=== PATIENT | female | born 1960 | race Caucasian/White ===

== ENCOUNTER 2022-12-28 17:09 | Emergency (ER) | payer MEDICARE, OTHER ==
[~2022-12-28] VITALS: Ht 175 cm; Wt 83.9 kg
[~2022-12-28 17:09] MED LIST: ALBU2.5V52 INH; ALEN70TA47 PO; AMIT10TA6 PO; AMIT50TA3 PO; AMITRIPTYLINE; AMX500CIP PO; ASP81CT PO; Azithromycin PO; CA C1TAB53 PO; CA C1TAB80 PO; CELEXA; CITA-105 PO; CYCL10TA9 PO; DCS100C PO; DEXT1DRO8 OP; DOCU-161 PO; FENO135C; FENO135C PO; FLEXERIL; GABA-490 PO; GABA800T2 PO; HYDR-2890; HYDR-2890 PO; HYDR1TAB PO; NEURONTIN; OMEP-10 PO; OMEP20CA12 PO; ONDA-42 SL; OXYC-12 PO; PANT20TA PO; PHEN177S38 MM; PRILOSEC; RANI150C11 PO; RANI300T4 PO; RANITIDINE; SENN1TAB76 PO; SIMV40TA2 PO; SUCR1TAB PO; TIZA2TAB3 PO; TIZA4CAP6 PO; TRAM1TAB7 PO; TRAM50TA2 PO
[2022-12-28 17:26] LABS: BASOPHILS # (AUTO) 0.1 10^3/uL (0.0-0.1); BASOPHILS % (AUTO) 1 % (0-10); EOSINOPHILS # (AUTO) 0.5 10^3/uL (0.0-0.3); EOSINOPHILS % (AUTO) 4 % (0-10); HEMATOCRIT 40 % (35-52); HEMOGLOBIN 12.7 g/dL (11.5-16.0); LYMPHOCYTES # (AUTO) 1.5 10^3/uL (1.0-4.0); LYMPHOCYTES % (AUTO) 13 % (12-44); MEAN CORPUSCULAR HEMOGLOBIN 30 pg (25-34); MEAN CORPUSCULAR HGB CONC 32 g/dL (32-36); MEAN CORPUSCULAR VOLUME 93 fL (80-99); MEAN PLATELET VOLUME 9.8 fL (9.0-12.2); MONOCYTES # (AUTO) 0.9 10^3/uL (0.0-1.0); MONOCYTES % (AUTO) 7 % (0-12); NEUTROPHILS % (AUTO) 75 % (42-75); PLATELET COUNT 424 10^3/uL (130-400)
--- NOTE | 2022-12-28 17:28 | ED Chest Pain ---
General Chief Complaint: Chest Pain Stated Complaint: CHEST PAIN Nursing Triage Note: PT PRESENTS TO ED VIA POV FROM HOME WITH COMPLAINTS OF UNABLE TO SWALLOW FOOD OR LIQUIDS SINCE YETERDAY. PT REPORTS CENTRAL CP STARTING APROX 4 HOURS AGO. REPORTS IT RADIATES UP THE FRONT OF HER NECK AND THROUGH HER BACK Source: patient, old records Exam Limitations: no limitations (PRITI ENRIQUE MD) History of Present Illness Date Seen by Provider: Dec 28, 2022 Time Seen by Provider: 17:16 Initial Comments This 62-year-old woman presents to the emergency room with complaints of chest pain and inability to swallow food and fluid since yesterday afternoon. She has a history of multiple esophageal strictures requiring dilatation several times. She had an episode here in [place] in 2014 in which she had dilatation for 3 separate strictures and developed an esophageal perforation. She was transferred to [place]. She subsequently had a dilatation performed by Dr. Escamilla in 2018 in [place] where she lives. She is in town visiting a friend presently. She was supposed to have follow-ups with GI and serial dilatations but her in 2018. After her 's , she developed apathy regarding her health and esophageal problems. (PRITI ENRIQUE MD) Allergies and Home Medications Allergies Coded Allergies: Sulfa (Sulfonamide Antibiotics) (Verified Allergy, Mild, 10/29/11) nitrofurantoin (Verified Allergy, Mild, 10/29/11) Quinolones (Unverified Allergy, Unknown, 10/29/11) Patient Home Medication List Home Medication List Reviewed: Yes (PRITI ENRIQUE MD) Amitriptyline Hcl (Amitriptyline Hcl) 50 Mg Tablet, 50 MG PO HS, (Reported) Entered as Reported by: BEBE CARDOZA on 07/23/11 1427 Ca Carbonate/Vitamin D3/Vit K (Viactiv Soft Chew Tablet) 1 Each Tab.chew, 1 TAB.CHEW PO BID, (Reported) Entered as Reported by: MATILDA LIU on 06/14/13 1817 Citalopram Hydrobromide (Citalopram Hbr) 40 Mg Tablet, 40 MG PO HS, (Reported) Entered as Reported by: CHRISTOPHER LOZANO on 10/26/10 0157 Cyclobenzaprine Hcl (Cyclobenzaprine Hcl) 10 Mg Tablet, 1 EACH PO TID, (Repo rted) Entered as Reported by: ZAHRAA LÓPEZ on 06/28/14 1156 Gabapentin (Gabapentin) 400 Mg Capsule, 800 MG PO BID, (Reported) Entered as Reported by: DMITRI GARZA on 06/21/14 1603 Omeprazole (Omeprazole) 20 Mg Capsule.dr, 20 MG PO HS, (Reported) Entered as Reported by: MATILDA LIU on 06/14/13 181 Ranitidine Hcl (Ranitidine Hcl) 150 Mg Capsule, 150 MG PO DAILY, (Reported) Entered as Reported by: MATILDA LIU on 06/14/131816 Tramadol Hcl/Acetaminophen (Tramadol-Apap 37.5-325 Mg Tab) 1 Each Tablet, 1 TAB PO BID, (Reported) Entered as Reported by: MATILDA LIU on 06/14/131816 Review of Systems Review of Systems Constitutional: no symptoms reported EENTM: No Symptoms Reported Respiratory: No Symptoms Reported Cardiovascular: See HPI Gastrointestinal: See HPI Genitourinary: No Symptoms Reported Musculoskeletal: no symptoms reported Skin: no symptoms reported Psychiatric/Neurological: No Symptoms Reported Endocrine: No Symptoms Reported Hematologic/Lymphatic: No Symptoms Reported (PRITI ENRIQUE MD) Past Urmacir-Fvinux-Anlcvb Hx Patient Social History Tobacco Use?: No Substance use?: No Alcohol Use?: No Pt feels they are or have been: No (PRITI ENRIQUE MD) Immunizations Up To Date Tetanus Booster (TDap): More than 5yrs (PRITI ENRIQUE MD) Past Medical History Surgery/Hospitalization HX: HX ESOPHAGUS ISSUES- HAD TO BE STRATCHED MULTIPLE TIMES. Surgeries: Yes Abdominal (Multiple esophageal dilatations), Hysterectomy Respiratory: No Cardiac: No Neurological: No : No Reproductive Disorders: No Sexually Transmitted Disease: No Gastrointestinal: Yes (Multiple esophageal strictures) Gastroesophageal Reflux, Chronic Constipation, Irritable Bowel Osteoporosis, Arthritis, Fibromyalgia Endocrine: No HEENT: No Cancer: No Psychosocial: Yes Anxiety, Depression Adverse Reaction/Blood Tranf: No (PRITI ENRIQUE MD) Family Medical History Alcoholism 03 FATHER Cancer 03 FATHER Cataract 03 FATHER 03 MOTHER Chest pain 03 MOTHER Congestive heart failure 03 MOTHER Family history: Allergy DAUGHTER Family history: Arthritis 03 MOTHER Family history: Asthma DAUGHTER Family history: Cardiovascular disease 03 FATHER Family history: Osteoporosis 03 MOTHER Heart disease 03 MOTHER History of - respiratory disease DAUGHTER Hypercholesterolemia 03 FATHER Seizure disorder 03 FATHER Stroke 03 FATHER No Family History of: Abdominal aortic aneurysm Daniel's disease Aphasia Cancer of colon Congenital heart disease Cystic fibrosis Dementia Dysphagia Family history: Alzheimer's disease Family history: Breast disease Family history: Coronary thrombosis Family history: Diabetes mellitus Family history: Gastrointestinal disease Family history: Glaucoma Family history: Hypertension Family history: Thyroid disorder Headache Hearing loss Hereditary disease History of - anemia History of - disorder History of drug abuse Human immunodeficiency virus (HIV) seropositivity Infertile Kidney disease Malignant neoplasm of lung Myocardial infarction Parkinson's disease Prostate cancer Psychotic disorder Tuberculosis Visual impairment Physical Exam Vital Signs Vital Signs - First Documented 12/28/22 17:16 Temp 36.8 Pulse 102 Resp 16 B/P (MAP) 132/80 (97) Pulse Ox 94 (GIMENEZ,DHARMESH L DO) Vital Signs Capillary Refill : Less Than 3 Seconds (PRITI ENRIQUE MD) Height, Weight, BMI Height: 5'10.00" Weight: 215lbs. 6.0oz. 97.815725mx; 27.00 BMI Method:Stated General Appearance: WD/WN, Mild Distress HEENT: PERRL/EOMI, Normal ENT Inspection, Pharynx Normal Neck: Normal Inspection Respiratory: Lungs Clear, Normal Breath Sounds, No Accessory Muscle Use Cardiovascular: Regular Rate, Rhythm, No Edema, No Murmur Gastrointestinal: Soft; No Distended; Tenderness (Epigastrium) Extremity: Normal Inspection, No Pedal Edema Neurologic/Psychiatric: Alert, Oriented x3, No Motor/Sensory Deficits, Other (Mildly anxious) Skin: Normal Color, Warm/Dry (PRITI ENRIQUE MD) Progress/Results/Core Measures Results/Orders Lab Results Laboratory Tests Test 12/28/22 17:18 Range/Units White Blood Count 12.0 H 4.3-11.0 10^3/uL Red Blood Count 4.27 3.80-5.11 10^6/uL Hemoglobin 12.7 11.5-16.0 g/dL Hematocrit 40 35-52 % Mean Corpuscular Volume 93 80-99 fL Mean Corpuscular Hemoglobin 30 25-34 pg Mean Corpuscular Hemoglobin Concent 32 32-36 g/dL Red Cell Distribution Width 13.8 10.0-14.5 % Platelet Count 424 H 130-400 10^3/uL Mean Platelet Volume 9.8 9.0-12.2 fL Immature Granulocyte % (Auto) 0 % Neutrophils (%) (Auto) 75 42-75 % Lymphocytes (%) (Auto) 13 12-44 % Monocytes (%) (Auto) 7 0-12 % Eosinophils (%) (Auto) 4 0-10 % Basophils (%) (Auto) 1 0-10 % Neutrophils # (Auto) 9.0 H 1.8-7.8 10^3/uL Lymphocytes # (Auto) 1.5 1.0-4.0 10^3/uL Monocytes # (Auto) 0.9 0.0-1.0 10^3/uL Eosinophils # (Auto) 0.5 H 0.0-0.3 10^3/uL Basophils # (Auto) 0.1 0.0-0.1 10^3/uL Immature Granulocyte # (Auto) 0.1 0.0-0.1 10^3/uL Prothrombin Time 13.3 12.2-14.7 SEC INR Comment 1.0 0.8-1.4 Activated Partial Thromboplast Time 31 24-35 SEC Sodium Level 137 135-145 MMOL/L Potassium Level 4.1 3.6-5.0 MMOL/L Chloride Level 103 98-107 MMOL/L Carbon Dioxide Level 26 21-32 MMOL/L Anion Gap 8 5-14 MMOL/L Blood Urea Nitrogen 19 H 7-18 MG/DL Creatinine 1.01 0.60-1.30 MG/DL Estimat Glomerular Filtration Rate 63 BUN/Creatinine Ratio 19 Glucose Level 108 H 70-105 MG/DL Calcium Level 10.1 8.5-10.1 MG/DL Corrected Calcium 10.0 8.5-10.1 MG/DL Magnesium Level 1.8 1.6-2.4 MG/DL Total Bilirubin 0.8 0.1-1.0 MG/DL Aspartate Amino Transf (AST/SGOT) 20 5-34 U/L Alanine Aminotransferase (ALT/SGPT) 18 0-55 U/L Alkaline Phosphatase 95 40-136 U/L Myoglobin 24.8 10.0-92.0 NG/ML Troponin I < 0.028 <0.028 NG/ML Total Protein 7.2 6.4-8.2 GM/DL Albumin 4.1 3.2-4.5 GM/DL Lipase 22 8-78 U/L (GIMENEZ,DHARMESH L DO) Medications Given in ED Current Medications Medications Dose Ordered Sig/Macario Route Start Time Stop Time Status Last Admin Dose Admin Fentanyl Citrate 50 mcg ONCE ONCE IVP 12/28/22 17:30 12/28/22 17:31 DC 12/28/22 17:35 50 MCG Glucagon 1 mg ONCE ONCE IM 12/28/22 17:30 12/28/22 17:31 DC 12/28/22 17:39 1 MG Ondansetron HCl 8 mg ONCE ONCE IVP 12/28/22 17:30 12/28/22 17:31 DC 12/28/22 17:35 8 MG Pantoprazole 40 mg ONCE ONCE IV 12/28/22 17:30 12/28/22 17:31 DC 12/28/22 17:34 40 MG (GIMENEZ,DHARMESH L DO) Vital Signs/I&O 12/28/22 17:16 Temp 36.8 Pulse 102 Resp 16 B/P (MAP) 132/80 (97) Pulse Ox 94 (GIMENEZ,DHARMESH L DO) 2 Blood Pressure Mean: 97 Progress Progress Note : Time: 18:45 Progress Note Patient was interviewed and examined shortly after arrival. Cardiopulmonary work-up was pursued. Patient had a normal troponin and EKG. She was treated with fentanyl, Zofran, and Protonix with some improvement. Glucagon was also administered. I have observed the patient personally drink approximately 3 ounces of water without any type of regurgitation or vomiting. On the second attempt patient states she did feel little bit better. I discussed the situation at length and reviewed the prior endoscopy report with Dr. Kennedy, surgeon on-call, who is also the surgeon who performed endoscopy at the time of perforation. Dr. Kennedy's opinion is that patient should be evaluated at a higher level of care due to her risk of complications during endoscopy and dilatation. She is at high risk for perforating again. We do not have gastroenterology or cardiothoracic surgery support at this facility. He advised offering the options of transfer versus admission for observation followed by esophagram in the morning. 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 She offers to drive herself. I would like a better understanding of whether she is truly obstructed or just has slow flow. Care of the patient is being transitioned to Dr. Gimenez at this time who will reassess her soon and discuss options further. CBC, CMP, lipase, and troponin were grossly unremarkable. There was slight elevation in WBC of 12. (PRITI ENRIQUE MD) Progress Note : Progress Note 192 care was assumed at shift change. Patient was able to tolerate multiple times without any difficulty. We did discuss options versus to facilitate transfer, observation with him in the morning or she could be discharged on diet and follow-up with her GI specialist back home in [place]. Patient and has a GI specialist in [place]. She reports that she was post to have an esophageal dilatation back in 2018 but has not. Patient will be discharged per our discussion. She will return to the ER with any concerns otherwise she will follow with her GI specialist. She will call them first thing in the morning to set up an appointment time. (DHARMESH GIMENEZ DO) Initial ECG Impression Date: Dec 28, 2022 Initial ECG Impression Time: 17:19 Initial ECG Rate: 99 Initial ECG Rhythm: Normal Sinus Initial ECG Intervals: Normal Initial ECG Impression: Normal Comment Normal sinus rhythm with no ST elevation or depression. No abnormal intervals or axis deviation. (PRITI ENRIQUE MD) Diagnostic Imaging Diagonstic Imaging: Xray Plain Films/CT/US/NM/MRI: chest Comments NAME: JOELLE ALMARAZ [facility] REC#: [id number] PT STATUS: REG ER : 1960 PHYSICIAN: PRITI ENRIQUE MD ADMIT DATE: 12/28/22/ER Draft Date of Exam:12/28/22 CHEST 1 VIEW, AP/PA ONLY INDICATION: Chest pain. COMPARISON: Exam compared to 04/04/2019. FINDINGS: Lungs are clear. No failure, effusion, or pneumothorax. There is an old healed left fourth rib deformity, chronic. Hilar and mediastinal contours are normal. IMPRESSION: No acute-appearing abnormality. Dictated on workstation # [id number] Dict: 12/28/22 1732 Trans: 12/28/22 1739 [id number] Interpreted by: KARIME LIVE (PRITI ENRIQUE MD) Departure Impression Primary Impression: Esophageal stricture Additional Impression: Chest pain Qualified Codes: R07.9 - Chest pain, unspecified Disposition: 01 HOME, SELF-CARE Condition: Stable Departure-Patient Inst. Referrals: NO,LOCAL PHYSICIAN (PCP/Family) Primary Care Physician Patient Instructions: Esophageal Dilation, Esophageal Stricture (DC), Chest Pain That Is Not Caused by the Heart (DC) Add. Discharge Instructions: Liquid diet until cleared by your GI specialist, please call your GI specialist in the morning to arrange for further outpatient treatment. Return to the ER or proceed to the nearest emergency room with any concerns All discharge instructions reviewed with patient and/or family. Voiced understanding. PRITI ENRIQUE MD Dec 28, 2022 17:28 DHARMESH GIMENEZ DO Dec 28, 2022 19:21
[2022-12-28] MEDS ORDERED: ONDANSETRON 4 MG/2 ML (SDV) Z0FRAN IVP ONE (17:30)
[2022-12-28] MEDS ORDERED: fentaNYL INJ 100 MCG/2 ML AMP IVP ONE (17:30)
[2022-12-28] MEDS ORDERED: GLUCAGON EMERGENCY 1 MG/KIT IM ONE (17:30)
[2022-12-28] MEDS ORDERED: PANTOPRAZOLE 40 MG (PROTONIX) VIAL IV ONE (17:30)
[2022-12-28 17:39] LABS: ALBUMIN 4.1 GM/DL (3.2-4.5); CHLORIDE 103 MMOL/L (98-107); POTASSIUM 4.1 MMOL/L (3.6-5.0); SODIUM 137 MMOL/L (135-145)
--- NOTE | 2022-12-28 17:39 | Diagnostic Imaging Report ---
INDICATION: Chest pain. COMPARISON: Exam compared to 04/04/2019. FINDINGS: Lungs are clear. No failure, effusion, or pneumothorax. There is an old healed left fourth rib deformity, chronic. Hilar and mediastinal contours are normal. IMPRESSION: No acute-appearing abnormality. Dictated by: Dictated on workstation # [id number]
[2022-12-28 17:40] LABS: CALCIUM 10.1 MG/DL (8.5-10.1); PROTHROMBIN TIME PATIENT 13.3 SEC (12.2-14.7)
[2022-12-28 17:41] LABS: GLUCOSE 108 MG/DL (70-105)
[2022-12-28 17:42] LABS: TOTAL PROTEIN 7.2 GM/DL (6.4-8.2)
[2022-12-28 17:43] LABS: BILIRUBIN,TOTAL 0.8 MG/DL (0.1-1.0); CARBON DIOXIDE 26 MMOL/L (21-32)
[2022-12-28 17:45] LABS: ALKALINE PHOSPHATASE 95 U/L (40-136); CREATININE SERUM 1.01 MG/DL (0.60-1.30); GFR ESTIMATED 63
[2022-12-28 17:46] LABS: BUN/CREATININE RATIO 19
[2022-12-28 17:48] LABS: ALANINE AMINOTRANSFERASE 18 U/L (0-55); MAGNESIUM 1.8 MG/DL (1.6-2.4)
[2022-12-28 19:39] VITALS: BP 127/88
== END 2022-12-28 19:41 | disposition home or self-care (01) ==
LOC: EDUNIT# 17:09 → ER 17:11
DX: K22.2 Esophageal obstruction (principal); R07.9 Chest pain, unspecified; Z98.890 Other specified postprocedural states
CPT/HCPCS: 36415; 71045; 80053; 83690; 83735; 83874; 84484; 85025; 85610; 85730; 93005; 93041